=== PATIENT | male | born 1960 | race Two or more races ===

== ENCOUNTER 2019-09-24 05:00 | Day surgery (SDC) | payer OTHER ==
[~2019-09-24 05:00] MED LIST: ZESTRIL10 M1 PO
[2019-09-24] MEDS ORDERED: COLACE100 MG PO (08:43)
[2019-09-24] MEDS ORDERED: PERCOCET 5-3251 EACH PO (08:43)
== END 2019-09-24 14:20 | disposition home or self-care (01) ==
LOC: CIR.AMB 05:00
DX: K64.8 Other hemorrhoids (principal)